=== PATIENT | female | born 1955 | race Caucasian/White ===

== ENCOUNTER → 2024-12-03 12:56 | Outpatient (REF) | payer MEDICARE, SELFPAY | LOC: HWWDC 12:56 | PROVIDERS: ATTENDING PHYSICIAN Family Medicine | DX: Z12.31 Encounter for screening mammogram for malignant neoplasm of breast (principal) | CPT/HCPCS: 77063; 77067 ==

== ENCOUNTER 2025-05-28 21:59 | Inpatient (IN) | payer MEDICARE, SELFPAY ==
[2025-05-28 17:32] VITALS: BP 163/94
[2025-05-28 17:50] LABS: Urine Character Clear (Clear)
[2025-05-28 17:56] LABS: Urine White Cell >100 /HPF (0-5)
[2025-05-28 18:04] LABS: ALT (SGPT) 37 U/L (0-35); AST (SGOT) 38 U/L (14-36); Albumin 4.3 g/dl (3.5-5.0); Alkaline Phosphatase 126 U/L (38-126); Blood Urea Nitrogen 13 mg/dl (7-17); Calcium 9.0 mg/dl (8.4-10.2); Carbon Dioxide 23 mmol/L (22-30); Chloride 100 mmol/L (98-107); Glucose 124 mg/dl (70-99); Lipase 70 U/L (23-300); Potassium 4.0 mmol/L (3.5-5.1); Sodium 131 mmol/L (135-145); Total Protein 6.8 g/dl (6.3-8.2); eGFR > 60.00
[2025-05-28 18:07] LABS: Hematocrit 37.9 % (37.0-47.0); Hemoglobin 12.7 g/dL (12.0-16.0); Mean Corp Hgb Conc. 33.5 g/dL (33.0-37.0); Mean Corpuscular Volume 87.5 fL (81.0-99.0); Nucleated Red Blood Cells % 0 %; Platelet Count 222 10^3/uL (130-400); Red Cell Dist. Width 13.1 % (11.5-14.5)
[2025-05-28 19:01] VITALS: BP 133/76
[2025-05-28 19:04] VITALS: BMI 33.3
[2025-05-28] MEDS: TYLENOL 1000 MG PO (19:06)
--- NOTE | 2025-05-28 19:25 | ED.GENMED ---
History of Present Illness
<Santy Mckeon PA-C - Last Filed: 05/28/25 21:25>
General
Chief Complaint: Flank Pain
Source: patient
Time Seen by Provider: 05/28/25 19:00
History of Present Illness
History of Present Illness:
70-year-old female with past medical history of hypertension, GERD, hypothyroidism, frequent urinary tract infections presenting to the emergency department for evaluation after she had been experiencing some right flank pain, nausea, fevers and
generalized fatigue over the last 24 hours or so, history of similar and having a complicated urinary tract infection. Patient reports that over 30 years ago she had a right ureteral reimplantation secondary to having her chronic urinary tract
infections which she says worked well but she would still get intermittent urinary tract infections, currently does not follow with a urologist. She did not take anything for her symptoms prior to arrival.
Past History
<Santy Mckeon PA-C - Last Filed: 05/28/25 21:25>
Past History
ED Past Medical History: GERD, HTN and Hypothyroidism
ED Past Surgical History: Gynecological, Orthopedic, Urological and Other
Social History
Tobacco: Non-smoker
Alcohol: None
Drug: None
Personal:
Living: with family
Review of Systems
<Santy Mckeon PA-C - Last Filed: 05/28/25 21:25>
Review of Systems
All Other Systems: ROS reviewed and negative except as documented in HPI and ROS
Phy Exam
<Santy Mckeon PA-C - Last Filed: 05/28/25 21:25>
Physical Exam
Physical Exam:
GENERAL: Alert , in no apparent distress
EYE: clear conjunctiva b/l
HEAD: NCAT
ENT: o/p clr, mmm.
CARDIAC: Mildly tachycardic rate, normal rhythm
LUNGS: Clear breath sounds bilaterally, no acute respiratory distress, no wheezes/rales/rhonchi
ABDOMEN: Soft, without focal tenderness, no r/g, no cvat
NEUROLOGICAL: Alert and oriented
SKIN: Warm and dry, skin intact.
MUSCULOSKELETAL: No edema, well perfused.
PSYCH: Normal and appropriate interaction.
Scores
<Santy Mckeno PA-C - Last Filed: 05/28/25 21:25>
Heart Failure Risk
Heart Failure Risk Score: Not Applicable
Heart Score for Chest Pain Patients
STEMI patient?: Not applicable
Withdrawal Assessment of Alcohol
Withdrawal Assessment Completed?: Not applicable
Sepsis
<Santy Mckeon PA-C - Last Filed: 05/28/25 21:25>
Sepsis Screening
Sepsis Assessment: Sepsis
Sepsis Screen
Sepsis Screen: Sepsis
Date: 05/28/25
Time: 21:25
Course
<Santy Mckeon PA-C - Last Filed: 05/28/25 21:25>
Orders/Labs/Results
Orders:
Orders
05/28/25 17:45
Complete Blood Count/With Diff Urgent
Comprehensive Metabolic Panel Urgent
Lipase Urgent
Urinalysis Reflex To Culture Urgent
Date Specimen was Collected: 05/28/25
Time Specimen was Collected: 17:38
Urine Microscopic Reflex Cult Urgent
Urine Culture Urgent
BRANDO Source: U
Specimen Description:
Date Specimen was Collected: 05/28/25
Time Specimen was Collected: 17:38
05/28/25 19:02
Acetaminophen [Tylenol] 1,000 mg PO NOW STA
05/28/25 19:08
CT Abd/pel Without Iv Or Oral Urgent
Comment:
Reason For Exam: right flank pain, previous right ureter surgery
0.9% Sodium Chloride 1000 ml [Nss] 2,900 ml IV NOW STA
Ondansetron Injectable [Zofran] 4 mg IV NOW STA
05/28/25 19:09
Cefepime HCl [Maxipime] 2,000 mg IV NOW STA
05/28/25 19:21
Lactic Acid Q4H
Comment: CANCEL 2nd LACTIC ACID IF 1st LACTIC ACID IS LESS THAN 2
Blood Culture Q30M
BRANDO Source: Blood/Venous
Specimen Description:
05/28/25 19:25
Sterile Water [Sterile Water For Injection] 10 ml .ROUTE .STK-MED ONE
05/28/25 19:48
Blood Culture Q30M
BRANDO Source: Blood/Venous
Specimen Description:
05/28/25 21:20
Admit/Transfer Patient As Directed
Co-Sign Provider:
Level of Care: Inpatient admission
Assign to:: Medical/Surgical
Physician / Group: efra rivera
Diagnosis: uti right pyelonephritis
Reason for Hospitalization: uti right pyelonephritis
Expected length of stay greater than two midnights?: Yes
ELOS- Estimated Length of Stay in days: 3
I certify the patient meets the requirements for IP care: Yes
Code Status As Directed
Resuscitation Status: Full Code
05/28/25 21:23
PRN Pain Medication Management As Directed
May give lesser potent ordered pain med per pt: Yes
preference::
Protocol:: Medication orders for pain may be administered in a
manner that supports deferring to patient preference
when the pt is:
- Requesting an ordered lesser potent pain medication.
Least to most potent pain medications are defined
as: acetaminophen < NSAID < tramadol < opioids
(morphine, oxycodone, hydromorphone).
- Requesting a lesser dose of the same medication IF
ORDERED.
- Requesting a less intrusive route of administration
if both routes are prescribed by the provider (PO <
IV).
Abnormal Lab Results
05/28/25
17:45
Absolute Neuts (auto) 7.4 H 10^3/uL
(1.4-6.5)
Absolute Lymphs (auto) 0.8 L 10^3/uL
(1.2-3.4)
Neutrophils % 84.1 H %
(42.2-75.2)
Lymphocytes % 8.7 L %
(20.5-51.1)
Sodium 131 L mmol/L
(135-145)
Glucose 124 H mg/dl
(70-99)
AST 38 H U/L
(14-36)
ALT 37 H U/L
(0-35)
Urine Ketones 2+ A
(Negative)
Ur Occult Blood Reflex 4+ A
(Negative)
Urine Nitrite (Reflex) Positive A
(Negative)
Leukocyte Esterase Rfl 3+ A
(Negative)
Urine RBC 7-10 A /HPF
(0-2)
Urine WBC (Reflex) >100 A /HPF
(0-5)
Urine Bacteria (Reflex) Many A
(Negative)
Urine Albumin (Reflex) 2+ A
(Neg - Trace)
05/28/25 17:45
05/28/25 17:45
Vital Signs
Initial and Last Documented VS:
Initial Vital Signs
Temp Pulse Resp BP Pulse Ox
100.8 F H 93 16 163/94 98
05/28/25 17:32 05/28/25 17:32 05/28/25 17:32 05/28/25 17:32 05/28/25 17:32
Last Documented Vital Signs
Temp Pulse Resp BP Pulse Ox
100.1 F 82 22 110/62 96
05/28/25 20:28 05/28/25 20:25 05/28/25 20:25 05/28/25 20:25 05/28/25 20:25
<Eusebio CarRobin Pimentel, DO - Last Filed: 05/28/25 20:44>
Orders/Labs/Results
Orders:
Orders
05/28/25 17:45
Complete Blood Count/With Diff Urgent
Comprehensive Metabolic Panel Urgent
Lipase Urgent
Urinalysis Reflex To Culture Urgent
Date Specimen was Collected: 05/28/25
Time Specimen was Collected: 17:38
Urine Microscopic Reflex Cult Urgent
Urine Culture Urgent
BRANDO Source: U
Specimen Description:
Date Specimen was Collected: 05/28/25
Time Specimen was Collected: 17:38
05/28/25 19:02
Acetaminophen [Tylenol] 1,000 mg PO NOW STA
05/28/25 19:08
CT Abd/pel Without Iv Or Oral Urgent
Comment:
Reason For Exam: right flank pain, previous right ureter surgery
0.9% Sodium Chloride 1000 ml [Nss] 2,900 ml IV NOW STA
Ondansetron Injectable [Zofran] 4 mg IV NOW STA
05/28/25 19:09
Cefepime HCl [Maxipime] 2,000 mg IV NOW STA
05/28/25 19:21
Lactic Acid Q4H
Comment: CANCEL 2nd LACTIC ACID IF 1st LACTIC ACID IS LESS THAN 2
Blood Culture Q30M
BRANDO Source: Blood/Venous
Specimen Description:
05/28/25 19:25
Sterile Water [Sterile Water For Injection] 10 ml .ROUTE .ST-MED ONE
05/28/25 19:48
Blood Culture Q30M
BRANDO Source: Blood/Venous
Specimen Description:
05/28/25 21:20
Admit/Transfer Patient As Directed
Co-Sign Provider:
Level of Care: Inpatient admission
Assign to:: Medical/Surgical
Physician / Group: efra rivera
Diagnosis: uti right pyelonephritis
Reason for Hospitalization: uti right pyelonephritis
Expected length of stay greater than two midnights?: Yes
ELOS- Estimated Length of Stay in days: 3
I certify the patient meets the requirements for IP care: Yes
Code Status As Directed
Resuscitation Status: Full Code
05/28/25 21:23
PRN Pain Medication Management As Directed
May give lesser potent ordered pain med per pt: Yes
preference::
Protocol:: Medication orders for pain may be administered in a
manner that supports deferring to patient preference
when the pt is:
- Requesting an ordered lesser potent pain medication.
Least to most potent pain medications are defined
as: acetaminophen < NSAID < tramadol < opioids
(morphine, oxycodone, hydromorphone).
- Requesting a lesser dose of the same medication IF
ORDERED.
- Requesting a less intrusive route of administration
if both routes are prescribed by the provider (PO <
IV).
Abnormal Lab Results
05/28/25
17:45
Absolute Neuts (auto) 7.4 H 10^3/uL
(1.4-6.5)
Absolute Lymphs (auto) 0.8 L 10^3/uL
(1.2-3.4)
Neutrophils % 84.1 H %
(42.2-75.2)
Lymphocytes % 8.7 L %
(20.5-51.1)
Sodium 131 L mmol/L
(135-145)
Glucose 124 H mg/dl
(70-99)
AST 38 H U/L
(14-36)
ALT 37 H U/L
(0-35)
Urine Ketones 2+ A
(Negative)
Ur Occult Blood Reflex 4+ A
(Negative)
Urine Nitrite (Reflex) Positive A
(Negative)
Leukocyte Esterase Rfl 3+ A
(Negative)
Urine RBC 7-10 A /HPF
(0-2)
Urine WBC (Reflex) >100 A /HPF
(0-5)
Urine Bacteria (Reflex) Many A
(Negative)
Urine Albumin (Reflex) 2+ A
(Neg - Trace)
05/28/25 17:45
05/28/25 17:45
Vital Signs
Initial and Last Documented VS:
Initial Vital Signs
Temp Pulse Resp BP Pulse Ox
100.8 F H 93 16 163/94 98
05/28/25 17:32 05/28/25 17:32 05/28/25 17:32 05/28/25 17:32 05/28/25 17:32
Last Documented Vital Signs
Temp Pulse Resp BP Pulse Ox
100.1 F 82 22 110/62 96
05/28/25 20:28 05/28/25 20:25 05/28/25 20:25 05/28/25 20:25 05/28/25 20:25
<Santy Mckeon PA-C - Last Filed: 05/28/25 21:25>
MDM/Problems Addressed
Differential Diagnosis Includes:
Pyelonephritis
Infected kidney stone
Urosepsis
Abscess
Shingles
Cystitis
MDM/Problems Addressed:
70-year-old female presenting to the emergency department for right flank pain, nausea, fevers, history of previous kidney infection/urosepsis. Patient presenting mildly tachycardic, found to be febrile. Tylenol ordered for pyrexia. Clinical
concern for urosepsis. Labs initiated from triage show no leukocytosis, I did add on a lactic acid and blood cultures. Urinalysis does show nitrite positive urine and greater than 100 WBCs confirming suspicion for a urinary tract infection.
Maxipime ordered due to suspicion for complicated UTI. CT of the abdomen and pelvis ordered to rule out stone or obstructive process. Plan for admission
Chronic conditions affecting care: Other (Previous urinary tract infection/ureteral reimplantation)
<Santy Mckeon PA-C - Last Filed: 05/28/25 21:25>
*Radiology
Radiology exam reviewed: radiology read reviewed
*Pulse Oximetry
SaO2: 98
Oxygen Mode of Delivery: Room air
Patient hypoxic: no
*Critical Care Note
Total Time (30-74mins, 75-104mins- exclusive of procedures): Not Applicable
Data Reviewed
Review of Other/Old Records Reveals: Records and Radiology Studies
Source: patient and records
<Santy Mckeon PA-C - Last Filed: 05/28/25 21:25>
Patient Management
Discussion with other providers: Hospitalist and [employer] Aide
Escalation/DeEscalation of care consider admission/obs:
Patient CT scan is without any evidence for obstructive process. I do suspect pyelonephritis is the most likely diagnosis. Maxipime ordered. Hospitalist team was notified and accepts for continued evaluation and treatment. Urology is also aware
and can consult as needed.
ED Attending Note
<Santy Mckeon PA-C - Last Filed: 05/28/25 21:25>
-
Portions of this chart may have been created with voice recognition software.� Occasional wrong word or��sound alike� substitutions may have occurred due to the inherent limitations of voice recognition software.
<Eusebio Pimentel DO - Last Filed: 05/28/25 20:44>
ED Attending Note
Patient seen and examined by attending physician: Yes
I performed the substantive portion of visit, reviewed & personally made and approve the management plan that is documented in note by myself or KELBY.: Yes
ED Attending Note:
I agree with Ricardo's note
70-year-old female presents feeling unwell over the past 24 hours or so. Primarily having right flank pain nausea fevers and chills. History of right ureteral surgery secondary to endometriosis. She has had significant pyelonephritis in the past.
In fact she was noted to have significantly decreased renal function in the right kidney and there was a suggestion that she might ultimately require a nephrectomy. She has not followed up with urology in some time. Original procedures were
performed at [place] where she worked. She no longer works there and desires a urologist in this area. At the time my evaluation patient is feeling much better after IV fluids, antiemetics.
General: Awake, Alert, Oriented X3. No acute distress.
Vitals: Febrile
Head: Atraumatic
Eyes: Pupils equal, EOMI
Throat: Airway intact, no exudates
Neck: Trachea midline
Lungs: Clear and equal b/l
Heart: Regular rate, no murmurs
Abd: Soft, Nontender, No pulsatile mass
Back: No significant CVA tenderness to percussion
Neuro: Nonfocal
Skin: Warm, dry, no rash
Extremities: pulses equal b/l, no edema
Labs show normal creatinine. White count is normal. Urinalysis is abnormal consistent with a urinary tract infection. CT shows no ureteral obstruction. Right kidney is atrophic. Agree with hospitalization broad-spectrum antibiotics, IV fluid
bolus.
Discharge Plan
Departure
Patient Disposition: Admit
Date of Disposition: 05/28/25
Time of Disposition: 20:29
Presentation/result/management discussed w/ accepting MD/DO: Hospitalist
Discharge Problem:
Acute pyelonephritis
Prescriptions:
No Action
levothyroxine 112 mcg Tablet
112 mcg PO .DAILY EXCEPT SUN.
Rx Instructions:
The patient takes two on Sun.
omeprazole [Prilosec] 20 mg Capsule,Delayed Release(Dr/Ec)
20 mg PO DAILY
lisinopril 2.5 mg Tablet
2.5 mg PO DAILY
levothyroxine 112 mcg Tablet
224 mcg PO .WED.
cholecalciferol (vitamin D3) [Vitamin D3] 25 mcg (1,000 unit) Tablet
25 mcg PO DAILY
Zepbound 5 mg/0.5 mL Solution
5 mg SC QWEEK
Referrals:
Jessie Peñaloza MD [Family Provider, Family Practice]
Interventions
Interventions:
*Risk Screen - Suicide Last Done: 05/28/25 17:32
*General Assessment Last Done: 05/28/25 17:32
*Neglect/Abuse Screening Last Done: 05/28/25 17:32
*ED COVID-19 Vaccine History Last Done: 05/28/25 17:32
TL-Zkrbxw-Xowobkjfqk Assessment Last Done: 05/28/25 20:41
ED-Female Genitourinary Assessment Last Done: 05/28/25 20:41
Discharge Date and Time
Print Language: FRENCH
[2025-05-28] MEDS: ZOFRAN 4 MG IV (19:40)
[2025-05-28] MEDS: MAXIPIME 2000 MG IV (19:40)
[2025-05-28] MEDS: NSS 2900 ML IV (19:50)
[2025-05-28 20:25] VITALS: BP 110/62
--- NOTE | 2025-05-28 20:45 | HPS.HSE ---
Family Physician
-
Family Physician: Jessie Peñaloza MD
Chief Complaint
-
Right flank pain, urgency 2 days ago, fever today
History of Present Illness
70-year-old female complaining of right flank pain, nausea, fevers, generalized fatigue over the past 24 hours. She reports 2 days of urgency, right flank pain. She reports starting Bactrim of which she has taken 4 doses. She states she did have
a UTI earlier in the year however does not have them frequently last record we have on file is 2019 E. coli UTI. She does have history 30 years ago with a right ureteral reimplantation secondary to chronic UTIs. Denies headache, sore throat,
chest pain, palpitations, cough, shortness of breath, vomiting, diarrhea, rash. She has past medical history of frequent urinary tract infections, ureteral reimplantation surgery 30 years ago right sided, GERD, HTN, hypothyroidism, class I obesity
Medical History
Past Medical History
Past Medical History: Reports Other
Additional Past Medical History:
frequent urinary tract infections
ureteral reimplantation surgery 30 years ago right sided
Atrophy right kidney
GERD
HTN
hypothyroidism
class I obesity
Breast cancer s/p mastectomy/chemo 2013
Past Surgical History: Reports Other
Additional Past Surgical History:
ureteral reimplantation surgery 30 years ago right sided due to endometriosis
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
Right oophorectomy due to endometriosis
Mastectomy with flap repair secondary breast cancer/chemo 2013
bilateral knee replacement
Cataract extraction 1 week ago with lens implants May 2025
Cervical cancer status post colposcopy cone over 30 years ago
Social History
Tobacco: Non-smoker
Alcohol: Occasional
Drug: None
Personal:
Living: With Family
Employment: Retired
Family History
Family History: Not pertinent
Allergies / Home Medications
Allergies reflects when Allergies were last updated in [employer].
Home Medications with original date entered in [employer]
Allergy/Medication List:
Allergies
Allergy/AdvReac Type Severity Reaction Status Date / Time
NKA - No Known Allergies Allergy Unknown Uncoded 05/28/25 17:37
Home Medications
cholecalciferol (vitamin D3) 25 mcg (1,000 unit) tablet (Vitamin D3) 25 mcg PO DAILY 05/28/25
levothyroxine 112 mcg tablet 112 mcg PO .DAILY EXCEPT SUN. 05/28/25
levothyroxine 112 mcg tablet 224 mcg PO .WED. 05/28/25
lisinopril 2.5 mg tablet 2.5 mg PO DAILY 05/28/25
omeprazole 20 mg capsule,delayed release 20 mg PO DAILY 05/28/25
tirzepatide (weight loss) 5 mg/0.5 mL subcutaneous solution (Zepbound) 5 mg SC QWEEK 05/28/25
Review of Systems
-
History Source: Patient
A 12 point ROS was completed and negative except as noted: Yes
Constitutional: Reports Fever and Chills
EENT: Denies Sore Throat or Runny Nose
Respiratory: Denies Cough or Trouble Breathing
Cardiac: Denies Chest Pain, Diaphoresis, Palpitations or Syncope
Abdomen/GI: Reports Abdominal Pain (Right flank) and Nausea; Denies Vomiting, Diarrhea, Constipated or Bloody Stools
: Reports Dysuria, Frequency and Flank Pain (Right); Denies Incontinence or Difficulty Voiding
Musculoskeletal: Denies Joint Pain or Edema
Skin: Denies Itching or Rash
Neurological: Denies Dizzy or Headache
Endocrine: Reports No Symptoms
Hematologic/Lymphatic: Reports No Symptoms
Psych: Reports Calm
Physical Exam
Vital Signs
Vital Signs
Temp Pulse Resp BP Pulse Ox
100.1 F 82 22 110/62 96
05/28/25 20:28 05/28/25 20:25 05/28/25 20:25 05/28/25 20:25 05/28/25 20:25
Physical Exam
General: Fever and Chills
HEENT: NormoCephalic, Anicteric, Moist mucous membranes, PERRLA, [place] Conjunctivae and No Ptosis
Respiratory: Clear; No Wheezes, Rales or Rhonchi
Cardiac: S1/S2 and Regular Rhythm; No Murmur, Rub, Gallop or Peripheral Edema
Breast: Deferred by me
GI: Soft, Non Distended, Normal Bowel Sounds, Tender (Right flank, suprapubic) and No Hepatosplenomegaly
Rectal: Deferred by Provider
Genito-urinary: Deferred by me
Musculoskeletal: No Clubbing, No Cyanosis and No Edema
Skin: Warm; No Dry, Rash or Jaundice
Neuro: AO x 3, No Motor Deficits, Nonfocal/grossly intact, Cranial Nerves Intact and No Sensory Deficits; No Slurred Speech, Facial Droop, Tremors or Sedated
Psych: Calm
Laboratory Results
-
05/28/25 17:45
05/28/25 17:45
Laboratory Results
Lactic Acid Cancelled 05/28/25 23:15
Total Bilirubin 0.7 mg/dl (0.2-1.3) 05/28/25 17:45
AST 38 U/L (14-36) H 05/28/25 17:45
ALT 37 U/L (0-35) H 05/28/25 17:45
Alkaline Phosphatase 126 U/L (38-126) 05/28/25 17:45
Lipase 70 U/L (23-300) 05/28/25 17:45
Data Reviewed
-
CT Scan: Report Reviewed by me
Lab Data: Labs Reviewed by me
Impression/Plan
-
Impression/plan:
Admit to [facility]
#Sepsis 2/2 acute pyelonephritis/UTI
#Atrophic right kidney with moderate perinephric stranding
#History of right ureter reimplantation due to endometriosis required right oophorectomy
HR 93, 102.5F> 100.1F, BP 110/62
- UA +3 leukocytes many bacteria WBC> 100 positive nitrates plus for blood
-Consult urology
- IV Maxipime
- IV fluids 2900 mL sepsis bolus
- Continue IV NSS 80 cc an hour
- Tylenol as needed fever, Zofran as needed
- Follow CBC, CMP, urine culture, blood cultures
CT abdomen pelvis:
1. moderate size hiatal hernia, incompletely included on this study.
2. Cholelithiasis.
3 Atrophic right kidney with moderate perinephric stranding, cannot exclude infection. No findings to suggest ureteral calculus or obstructive uropathy bilaterally. Prior reimplantation of right ureter anteriorly.
#Cataract extraction 1 week ago May 2025
#History of retinal inflammation both eyes
Patient to bring eyedrops patient may take him
#Hypothyroidism status post partial thyroidectomy papillary CA
-Continue levothyroxine 112 mcg p.o. daily except Sunday levothyroxine 224 mcg p.o.
#HTN
BP 110/62
-Hold lisinopril 2.5 mg daily
#GERD
-Continue omeprazole 20 mg daily
#Class I obesity�BMI 33.3
Patient on Zepbound 5 mg subcu Wednesdays last dose 05/27/2025
Other PMH:
Mastectomy with flap repair secondary to breast cancer/chemo 2013
DVT prophylaxis
Subcu heparin
Full code
--- NOTE | 2025-05-28 20:49 | W.PN.UPDATE ---
Update Note
Progress Note Update
Patient seen in conjunction with [employer] [facility]. I agree with the findings and history and physical. I concur with assessment plan listed otherwise.
This is a 70-year-old female with past medical history significant for hypothyroid, hypertension, GERD presenting to the emergency department with flank pain and found to be febrile to 100.8. She has past medical history of recurrent UTIs and a
history of right-sided ureteral reimplantation 30 years ago. She denies history of kidney stones. Reports 2 days of flank pain. She did take Bactrim x 4 doses. She has continued flank pain and fevers with said come to the emergency department.
She has not had any nausea or vomiting. She reports her last treatment for UTI was in September.
In the emergency department blood pressure was 110/60 with a pulse rate of 82 and she is satting 96% on room air. UA is markedly positive. CBC is unremarkable electrolytes BUN/creatinine were normal.
CT of the abdomen pelvis showed no acute finding with atrophic right kidney with moderate perinephric stranding, cannot exclude infection. No findings to suggest ureteral calculus or obstructive uropathy bilaterally. Prior reimplantation of right
ureter anteriorly.
Assessment and plan
70-year-old with history of right ureteral surgery who presents with right-sided flank pain and found to have positive UA and a fever 100.8. She has pyelonephritis and meets sepsis criteria
But is otherwise stable. Last cultures was in 2019 showing E. coli that is sensitive to third-generation cephalosporins. She has no recent hospitalization. She denies recent antibiotic use.
- Admit to [facility]
- Blood and urine culture sent
- Will continue with IV cefepime for now pending cultures
- Pain control
- Urology consulted, since no obvious obstruction or hydronephrosis and no acute indication for procedure
- Allow regular diet and continued her thyroid med, hold lisinopril pending BP stability in am
DVT prophylaxis -Lovenox subcu
CODE STATUS�full code
[2025-05-28 21:00] VITALS: BP 104/55
[2025-05-28 23:18] VITALS: BP 121/68; BMI 32.3
[2025-05-29] MEDS: NSS 1000 IV ×2 (00:23→13:19)
[2025-05-29] MEDS: MAXIPIME 1000 MG IV ×4 (01:20→21:22)
[2025-05-29] MEDS: STERILE WATER FOR INJECTION 10 ML IV ×4 (01:21→21:24)
[2025-05-29] MEDS: TYLENOL 650 MG PO ×3 (03:18→21:26)
[2025-05-29] MEDS: SYNTHROID 112 MCG PO (05:00)
--- NOTE | 2025-05-29 07:09 | W.PN.HOSP.TC ---
Today's Communication/Plan
-
Doing better
Urine culture growing E. coli
Follow blood cultures which are still pending
Anticipate likely switching to a third generation Cephalosporin tomorrow (as long as sensitivities allow) followed by discharge
Assessment / Plan
Assessment / Plan
Physical Exam
General: Not in acute distress
HEENT: Normocephalic, Moist mucous membranes
Respiratory: Clear to Auscultation Bilaterally
Cardiac: S1/S2 and Regular Rhythm
GI: Soft, Non Distended, Normal Bowel Sounds
Musculoskeletal:No Cyanosis and No Edema
Skin: Warm. Dry.
Neuro: AAO x 3, Nonfocal/grossly intact bilaterally
Psych: Calm
Assessment/Plan
She reports 2 days of urgency, right flank pain. She reports starting Bactrim of which she has taken 4 doses. She states she did have a UTI earlier in the year however does not have them frequently last record we have on file is 2019 E. coli
UTI. She does have history 30 years ago with a right ureteral reimplantation secondary to chronic UTIs. Denies headache, sore throat, chest pain, palpitations, cough, shortness of breath, vomiting, diarrhea, rash.
[place]:
70-year-old female with past medical history significant for urinary tract infections (with some episodes of pyelonephritis), ureteral reimplantation surgery 30 years ago right sided, hypothyroidism, hypertension, GERD and obesity, presented to the
emergency department with dysuria, urinary frequency, right flank pain, nausea, subjective fevers, fatigue and found to be febrile to 100.8 F. She has a past medical history of recurrent UTIs and a history of right-sided ureteral reimplantation 30
years ago. She denied history of kidney stones. She reported 2 days of flank pain prior to presentation. She did take Bactrim x 4 doses prior to coming to the hospital without any resulting improvement. She has continued flank pain and fevers with
said come to the emergency department. She has not had any nausea or vomiting. She reported that her last treatment for UTI was in September 2024. In the emergency department blood pressure was 110/60 mmHg with a pulse rate of 82 bpm and she was
saturating oxygen 96% on room air. Urinalysis was markedly positive. CBC was unremarkable electrolytes BUN/creatinine were normal. CT of the abdomen pelvis showed no acute finding with atrophic right kidney with moderate perinephric stranding,
cannot exclude infection. No findings to suggest ureteral calculus or obstructive uropathy bilaterally. Prior reimplantation of right ureter anteriorly.
#Sepsis Secondary to acute pyelonephritis/Complicated UTI
#Dysuria, Urinary Frequency, Right Flank Pain, Fatigue, Fevers
#Atrophic right kidney with moderate perinephric stranding
#History of right ureter reimplantation ~35 years prior
#E. coli in urine cultures
- IV Cefepime for now -- confirmed with ID pharmacist that current dose is the correct dose -- will change to third generation Cephalosporin tomorrow as long as initial blood culture results are okay and nothing else growing on
urine culture in addition to the E. coli
- IV fluids were given
- Supportive care
- Urine culture growing E. coli -- follow for sensitivities
- At the time of admission, given patient's history, Dr. Nance discussed with urology who said to continue antibiotics, no urology consult needed
- I communicated (via [place] [employer], on 05/29/25) with patient's primary care provider, Dr. Jessie Peñaloza who said that patient just saw Dr. Arambula on 05/28/25 after taking 4 doses of the Bactrim, after which culture was just sent
out yesterday late in the day as outpatient
#Cataract extraction 1 week ago May 2025
#History of retinal inflammation both eyes
-Patient to bring eyedrops patient may take him
#Hypothyroidism status post partial thyroidectomy papillary cancer
-Continue levothyroxine 112 mcg p.o. daily except Sunday levothyroxine 224 mcg p.o.
#Hypertension
-Hold lisinopril 2.5 mg daily due to soft blood pressures earlier -- plan to resume on 05/30/25
#GERD
-Continue omeprazole 20 mg daily
#Class I obesity�BMI 33.3
-Patient on Zepbound 5 mg subcu Wednesdays last dose 05/27/2025
#History of Mastectomy with flap repair secondary to breast cancer/chemo 2013
#Hiatal Hernia on CT Imaging
#Cholelithiasis on CT Imaging
DVT Prophylaxis: Heparin subq
Code Status: Full code
DVT Prophylaxis: Heparin subq switch to Lovenox subq tomorrow
CODE STATUS: Full Code
Anticipated Discharge: Within 24 hours
Subjective/Interval History
-
Date of Service: May 29, 2025
Patient was seen and examined. She reported feeling much, much better compared to when she came in to the hospital yesterday.
Objective Data
-
Labs:
Laboratory Results
05/29/25
06:00
WBC Pending
Hgb Pending
Hct Pending
Plt Count Pending
Sodium Pending
Potassium Pending
Chloride Pending
Carbon Dioxide Pending
BUN Pending
Creatinine Pending
Glucose Pending
Calcium Pending
Total Bilirubin Pending
AST Pending
ALT Pending
Alkaline Phosphatase Pending
Vital Signs:
Vital Signs
Temp Pulse Resp BP Pulse Ox
99.1 F 80 16 121/68 97
05/28/25 23:18 05/28/25 23:18 05/28/25 23:18 05/28/25 23:18 05/28/25 23:18
[2025-05-29 07:10] VITALS: BP 103/62
[2025-05-29] MEDS: HEPARIN SC (08:42)
[2025-05-29] MEDS: PROTONIX 40 MG PO (08:45)
[2025-05-29] MEDS: VITAMIN D3 (cholecalciferol) 25 MCG PO (08:45)
[2025-05-29] MEDS: FLUSH (NSS) 2 FLUSH IV (08:50)
[2025-05-29 09:25] LABS: Hematocrit 33.8 % (37.0-47.0); Hemoglobin 10.9 g/dL (12.0-16.0); Mean Corp Hgb Conc. 32.2 g/dL (33.0-37.0); Mean Corpuscular Volume 89.2 fL (81.0-99.0); Nucleated Red Blood Cells % 0 %; Platelet Count 176 10^3/uL (130-400); Red Cell Dist. Width 13.4 % (11.5-14.5)
[2025-05-29 09:40] LABS: ALT (SGPT) 32 U/L (0-35); AST (SGOT) 28 U/L (14-36); Albumin 3.4 g/dl (3.5-5.0); Alkaline Phosphatase 107 U/L (38-126); Blood Urea Nitrogen 9 mg/dl (7-17); Calcium 8.3 mg/dl (8.4-10.2); Carbon Dioxide 22 mmol/L (22-30); Chloride 108 mmol/L (98-107); Estimated Creatinine Clearance 77 ml/min; Glucose 91 mg/dl (70-99); Potassium 4.3 mmol/L (3.5-5.1); Sodium 135 mmol/L (135-145); Total Protein 5.6 g/dl (6.3-8.2); eGFR > 60.00
--- NOTE | 2025-05-29 10:20 | CM ---
CM reviewed chart, chart seen bedside, initial assessment completed. Patient is a 70-year-old female complaining of right flank pain, nausea, fevers, generalized fatigue over the past 24 hours
Patient resides with her in a multiple level town home, master bedroom on first floor, few steps to enter home. Patient denies use of DME, VN/SNF. PCP Jessie Peñaloza, pharmacy [facility], confirms prescription coverage. Patient denies
insecurities at home. CM will continue to follow for all discharge planning needs.
Plan; home no needs anticipated
[2025-05-29] MEDS: HEPARIN 5000 UNITS SC ×2 (11:32→21:24)
[2025-05-29 15:23] VITALS: BP 126/59
[2025-05-29 23:07] VITALS: BP 136/64
[2025-05-30] MEDS: MAXIPIME 1000 MG IV ×2 (02:26→09:00)
[2025-05-30] MEDS: NSS 1000 IV (02:26)
[2025-05-30] MEDS: STERILE WATER FOR INJECTION 10 ML IV ×2 (02:27→09:01)
[2025-05-30] MEDS: SYNTHROID 112 MCG PO (06:13)
[2025-05-30 08:00] VITALS: BP 147/72
--- NOTE | 2025-05-30 08:05 | W.PN.HOSP.TC ---
Today's Communication/Plan
-
Discharge today
Assessment / Plan
Assessment / Plan
Physical Exam
General: Not in acute distress
HEENT: Normocephalic, Moist mucous membranes
Respiratory: Clear to Auscultation Bilaterally
Cardiac: S1/S2 and Regular Rhythm
GI: Soft, Non Distended, Normal Bowel Sounds
: No CVA tenderness on either the left or the right side
Musculoskeletal:No Cyanosis and No Edema
Skin: Warm. Dry.
Neuro: AAO x 3, Nonfocal/grossly intact bilaterally
Psych: Calm
Assessment/Plan
70-year-old female with past medical history significant for urinary tract infections (with some episodes of pyelonephritis), ureteral reimplantation surgery 30 years ago right sided, hypothyroidism, hypertension, GERD and obesity, presented to the
emergency department with dysuria, urinary frequency, right flank pain, nausea, subjective fevers, fatigue and found to be febrile to 100.8 F. She has a past medical history of recurrent UTIs and a history of right-sided ureteral reimplantation 30
years ago. She denied history of kidney stones. She reported 2 days of flank pain prior to presentation. She did take Bactrim x 4 doses prior to coming to the hospital without any resulting improvement. She has continued flank pain and fevers with
said come to the emergency department. She has not had any nausea or vomiting. She reported that her last treatment for UTI was in September 2024. In the emergency department blood pressure was 110/60 mmHg with a pulse rate of 82 bpm and she was
saturating oxygen 96% on room air. Urinalysis was markedly positive. CBC was unremarkable electrolytes BUN/creatinine were normal. CT of the abdomen pelvis showed no acute finding with atrophic right kidney with moderate perinephric stranding,
cannot exclude infection. No findings to suggest ureteral calculus or obstructive uropathy bilaterally. Prior reimplantation of right ureter anteriorly.
#Sepsis Secondary to acute pyelonephritis/Complicated E. coli UTI -- E. coli RESISTANT TO BACTRIM
#Dysuria, Urinary Frequency, Right Flank Pain, Fatigue, Fevers
#Atrophic right kidney with moderate perinephric stranding
#History of right ureter reimplantation ~35 years prior
- Changed to third generation PO Cephalosporin -- total antibiotics will be for 10 days -- first day of antibiotics was 05/28/25 evening -- continue antibiotics through 06/07/25
- IV fluids were given
- Supportive care
- Urine culture growing E. coli; sensitivities noted
- At the time of admission, given patient's history, Dr. Nance discussed with urology who said to continue antibiotics, no urology consult needed
- I communicated (via [place] [employer], on 05/29/25) with patient's primary care provider, Dr. Jessie Peñaloza who said that patient just saw Dr. Arambula on 05/28/25 after taking 4 doses of the Bactrim, after which culture was just sent
out yesterday late in the day as outpatient
#Cataract extraction 1 week ago May 2025
#History of retinal inflammation both eyes
-Patient to bring eyedrops patient may take him
#Hypothyroidism status post partial thyroidectomy papillary cancer
-Continue levothyroxine 112 mcg p.o. daily except Sunday levothyroxine 224 mcg p.o.
#Hypertension
-Continue Lisinopril
#GERD
-Continue omeprazole 20 mg daily
#Class I obesity�BMI 33.3
-Patient on Zepbound 5 mg subcu Wednesdays last dose 05/27/2025
#Mild AST and ALT elevation - Fatty Liver vs. side effect of hospital Cefepime antibiotics?
-Recheck CMP outpatient
#History of Mastectomy with flap repair secondary to breast cancer/chemo 2013
#Hiatal Hernia on CT Imaging
#Cholelithiasis on CT Imaging
DVT Prophylaxis: Heparin subq
Code Status: Full code
More than 30 minutes spent in discharge including
Final examination of the patient
Summarizing hospital stay
Instructions for continuing care to all relevant caregivers
Preparation of discharge records, prescriptions, and referral forms
Total time spent (in minutes): 41
Anticipated Discharge: Today
Subjective/Interval History
-
Date of Service: May 30, 2025
Patient was seen and examined. She said she was doing okay, overall improved from when she first came in, still not feeling great, some soreness on her right side, she would like to go home today.
Objective Data
-
Labs:
Laboratory Results
05/30/25
06:00
WBC Pending
Hgb Pending
Hct Pending
Plt Count Pending
Sodium Pending
Potassium Pending
Chloride Pending
Carbon Dioxide Pending
BUN Pending
Creatinine Pending
Glucose Pending
Calcium Pending
Total Bilirubin Pending
AST Pending
ALT Pending
Alkaline Phosphatase Pending
Vital Signs:
Vital Signs
Temp Pulse Resp BP Pulse Ox
99.3 F 72 20 136/64 96
05/29/25 23:07 05/29/25 23:07 05/29/25 23:07 05/29/25 23:07 05/29/25 23:07
I&O
05/29/25 05/30/25 05/31/25
06:59 06:59 06:59
Intake Total 1540 / 1540
Balance 1540 / 1540
[2025-05-30] MEDS: PROTONIX 40 MG PO (09:01)
[2025-05-30] MEDS: VITAMIN D3 (cholecalciferol) 25 MCG PO (09:01)
[2025-05-30 09:51] LABS: Hematocrit 33.3 % (37.0-47.0); Hemoglobin 11.2 g/dL (12.0-16.0); Mean Corp Hgb Conc. 33.6 g/dL (33.0-37.0); Mean Corpuscular Volume 89.0 fL (81.0-99.0); Nucleated Red Blood Cells % 0 %; Platelet Count 185 10^3/uL (130-400); Red Cell Dist. Width 13.3 % (11.5-14.5)
[2025-05-30 10:20] LABS: ALT (SGPT) 97 U/L (0-35); AST (SGOT) 96 U/L (14-36); Albumin 3.5 g/dl (3.5-5.0); Alkaline Phosphatase 178 U/L (38-126); Blood Urea Nitrogen 9 mg/dl (7-17); Calcium 8.7 mg/dl (8.4-10.2); Carbon Dioxide 22 mmol/L (22-30); Chloride 108 mmol/L (98-107); Estimated Creatinine Clearance 88 ml/min; Glucose 137 mg/dl (70-99); Magnesium 1.9 mg/dl (1.6-2.3); Potassium 4.2 mmol/L (3.5-5.1); Sodium 136 mmol/L (135-145); Total Protein 5.8 g/dl (6.3-8.2); eGFR > 60.00
[2025-05-30 11:00] VITALS: BP 148/80
[2025-05-30 11:55] VITALS: BP 148/80
[2025-05-30] MEDS: ZESTRIL 2.5 MG PO (12:23)
[2025-05-30 15:00] VITALS: BP 136/75
--- NOTE | 2025-05-30 15:14 | CM ---
Met pt at bedside and provided IMM. Form also placed on the chart. Pt for discharge today.
Plan: D/C to home, no needs
--- NOTE | 2025-05-30 15:59 | W.DCSUMMARY ---
Discharge Summary
Discharge Data
Date of Admission: 05/28/25
Date of Discharge: 05/30/25
Total time spent discharging patient (in min): 41
-
Pending Results: Yes
Additional Pending Results:
Final results of blood cultures from hospitalization
Hospital Course
70-year-old female with past medical history of frequent urinary tract infections, ureteral reimplantation surgery 30 years ago right sided, GERD, HTN, hypothyroidism and class I obesity who presented with right flank pain, dysuria, nausea, fevers
and generalized fatigue. Patient has history of urinary tract infections, and has had some pyelonephritis in the past, she takes Bactrim at home whenever she has urinary tract infections -- this time she took several doses of Bactrim, and then saw
her primary care provider as her symptoms were getting worse. Based on patient's signs and symptoms, as well as results from CT imaging, patient was started on intravenous antibiotics for pyelonephritis. Details of the case were discussed with
patient's primary care provider, who gave some history as well. Patient grew E. coli on the urine cultures, and the E. coli was resistant to Bactrim, but sensitive to cephalosporins. Patient was overall feeling better than when she came, and she was
stable for discharge.
Discharge Plan
-
Patient Disposition: Home (Routine Discharge)
Discharge Diagnosis/Procedures: #Mildly Elevated Hepatic Transaminases
#Sepsis Secondary to acute pyelonephritis/Complicated E. coli UTI -- E. coli RESISTANT TO BACTRIM
#Dysuria, Urinary Frequency, Right Flank Pain, Fatigue, Fevers
#Atrophic right kidney with moderate perinephric stranding
#History of right ureter reimplantation ~35 years prior
#Cataract extraction 1 week ago May 2025
#History of retinal inflammation both eyes
#Hypothyroidism status post partial thyroidectomy papillary cancer
#Hypertension
#Gastroesophageal Reflux Disease
#Class I obesity�BMI 33.3
#Mild AST and ALT elevation - Fatty Liver vs. side effect of hospital Cefepime antibiotics?
#History of Mastectomy with flap repair secondary to breast cancer/chemo 2013
#Hiatal Hernia on CT Imaging
#Cholelithiasis on CT Imaging
CT Abdomen Pelvis without Intravenous or Oral Contrast (as per radiologist's report):
'FINDINGS:
CHEST:The lower chest contains at least a moderate size hiatal hernia, incompletely included on this study. Left breast implant is noted.
ABDOMEN:Evaluation of the organs of the abdomen are limited without intravenous contrast with small gallstones seen in the gallbladder. There is no biliary tract dilatation. There is no gross focal intrinsic abnormality of the unopacified liver,
pancreas, spleen or right adrenal gland. There is mild left adrenal gland thickening. There are no findings to suggest left-sided obstructive uropathy. There is an atrophic right kidney with moderate perinephric stranding. There are no findings to
suggest significant right renal collecting system or right ureteral dilatation and there are no findings to confirm calculus along the expected course of the right ureter, likely prior right ureteral reimplantation anteriorly. The abdominal aorta is
normal in caliber. There is no retroperitoneal lymphadenopathy. Sigmoid diverticulosis is noted. There is no intestinal obstruction or free air.
PELVIS:The urinary bladder is unopacified, limited. There is some mild calcified degenerated leiomyomatous changes of the uterus.
SKELETON:Degenerative changes are seen within the included lower thoracic and lumbar spine.
IMPRESSION:
At least moderate size hiatal hernia, incompletely included on this study.
Cholelithiasis.
Atrophic right kidney with moderate perinephric stranding, cannot exclude infection. No findings to suggest ureteral calculus or obstructive uropathy bilaterally. Prior reimplantation of right ureter anteriorly.'
Condition: Good
Diet: Low Fat, Low Cholesterol and Low Sodium
Activity: As tolerated
Blood Work: Complete Blood Count (with differential), Comprehensive Metabolic Panel and Magnesium in 3 to 4 days with your primary care provider's office
Activity Restrictions/Additional Instructions:
Histamine H2 Receptor Antagonists (e.g. Famotidine/Pepcid) and Proton Pump Inhibitors may decrease serum concentrations of Cefpodoxime. If you need to be on an acid reflux medication sooner than 06/08/25, you can take the Cefdinir instead (I will
send Cefdinir to your pharmacy also). DO NOT TAKE BOTH CEFDINIR AND CEFPODOXIME, BUT TAKE ONE OR THE OTHER ANTIBIOTIC THROUGH 06/07/25.
Instructions: Cefdinir, Cefpodoxime
Referrals:
Jessie Peñaloza MD [Family Provider, [facility]] - in less than 1 week
Referral Note: Hospitalization Follow-Up for Complicated Urinary Tract Infection/Pyelonephritis
Additional Discharge Medication Instructions: DO NOT TAKE BOTH CEFDINIR AND CEFPODOXIME, BUT TAKE ONE OR THE OTHER ANTIBIOTIC THROUGH 06/07/25 DEPENDING ON YOUR NEED TO TAKE ACID REFLUX MEDICATION.
Prescriptions:
New
cefpodoxime 200 mg tablet
200 mg PO BID 9 Days Qty: 17 0RF
cefdinir 300 mg capsule
300 mg PO BID Qty: 17 0RF
Continued
levothyroxine 112 mcg Tablet
112 mcg PO .DAILY EXCEPT WED.
Rx Instructions:
The patient takes two on Wed.
lisinopril 2.5 mg Tablet
2.5 mg PO DAILY
levothyroxine 112 mcg Tablet
224 mcg PO .WED.
cholecalciferol (vitamin D3) [Vitamin D3] 25 mcg (1,000 unit) Tablet
25 mcg PO DAILY
Zepbound 5 mg/0.5 mL Solution
5 mg SC QWEEK
Held
omeprazole 20 mg Capsule,Delayed Release(Dr/Ec)
20 mg PO DAILY
Hold Instructions: Resume on 06/08/25.
Discharge Orders:
Discharge Patient (As Directed); Ordered 05/30/25
Ordered By: Neymar Miller
Discharge Date and Time
Discharge Date/Time: 05/30/25 17:12
Print Language: ARABIC
== END 2025-05-30 17:12 | disposition home or self-care (01) | DRG 872 ==
LOC: 4 WEST ACU 21:59
PROVIDERS: Clinical Nurse Specialist Family Health; Emergency Medicine; Physician Assistant Medical; ADMITTING PHYSICIAN Internal Medicine; ATTENDING PHYSICIAN Hospitalist; EMERGENCY PHYSICIAN Emergency Medicine; FAMILY PHYSICIAN Family Medicine
DX: A41.51 Sepsis due to Escherichia coli [E. coli] (principal); N10 Acute pyelonephritis; I10 Essential (primary) hypertension; E89.0 Postprocedural hypothyroidism; E66.811 Obesity, class 1; K21.9 Gastro-esophageal reflux disease without esophagitis; N26.1 Atrophy of kidney (terminal); Z96.653 Presence of artificial knee joint, bilateral; Z96.1 Presence of intraocular lens; Z85.41 Personal history of malignant neoplasm of cervix uteri; Z85.3 Personal history of malignant neoplasm of breast; Z79.899 Other long term (current) drug therapy; Z68.33 Body mass index [BMI] 33.0-33.9, adult; Z79.890 Hormone replacement therapy
CPT/HCPCS: 74176; 80053; 81003; 81015; 83605; 83690; 83735; 85025; 87040; 87077; 87086; 87186; 96361; 96374; 96375; 99285